=== PATIENT | male | born 1960 | race Caucasian/White ===

== ENCOUNTER 2017-02-04 09:13 | Emergency (ER) | payer OTHER ==
[~2017-02-04] VITALS: Ht 162.6 cm; Wt 106.6 kg
[2017-02-04 11:17] LABS: ABSOLUTE BASOPHIL COUNT 0 /CUMM (0.0-0.2); ABSOLUTE EOSINOPHIL COUNT 0 /CUMM (0.0-0.7); ABSOLUTE GRANULOCYTE CT 8.3 /CUMM (1.4-6.5); ABSOLUTE MONOCYTE COUNT 0.7 /CUMM (0.10-0.60); BASOPHIL % 0.2 % (0.0-2.0); EOSINOPHIL % 0.3 % (0-5); HEMATOCRIT 45.2 % (42-52); MEAN CORPUSCULAR HGB 30.2 PG (27.0-31.0); MEAN PLATELET VOLUME 8.6 FL (7.4-10.4); PLATELET COUNT 217 /CUMM (130-400); RBC DISTRIBUTION WIDTH 13.4 % (11.5-14.5); RED BLOOD CELL CT 5.09 /CUMM (4.70-6.10); WHITE BLOOD CELL COUNT 10.1 /CUMM (4.8-10.8)
--- NOTE | 2017-02-04 11:53 | RADIOLOGY REPORT ---
EXAMINATION: XR CHEST CLINICAL INFORMATION: Back pain, fever, chills, rule out pneumonia. COMPARISON: None TECHNIQUE: 2 views of the chest were obtained. FINDINGS: Low lung volumes, otherwise no significant abnormality is noted involving the heart, lungs, mediastinum, bony thorax or soft tissues. IMPRESSION: Low lung volumes, otherwise no acute cardiopulmonary process.
--- NOTE | 2017-02-04 12:31 | ED GENERAL ADULT ---
History of Present Illness General Chief Complaint: General Adult Stated Complaint: SENT BY WALKIN ?FLU Source: patient Exam Limitations: no limitations Vital Signs & Intake/Output Vital Signs & Intake/Output Vital Signs Date Time Temp Pulse Resp B/P Pulse O2 O2 Flow FiO2 Ox Delivery Rate 02/04 1309 98.4 88 88 129/81 96 02/04 1021 97.3 84 18 135/84 94 Room Air Allergies Coded Allergies: midazolam (From VERSED) (Intermediate, VOMITING 02/04/17) Uncoded Allergies: Allergy Other NONE Med Allergies VERSED- NAUSEA, VOMITING Triage Note: C/O ACHING NECK AND SHOULDER MUSCLES, FEVER, LOSS OF APPETITE X 4 DAYS. WAS SEEN AT [facility] IN CLINIC IN [place]. STATES HE HAD A FLU SWAB DONE, WASNT TOLD RESULTS. DENIES COUGH, SORE THROAT. Triage Nurses Notes Reviewed? yes Onset: Abrupt Duration: day(s): (4), continues in ED Timing: recent history Injury Environment: home No Modifying Factors: none HPI: 56-year-old male comes into emergency room for further evaluation of multiple complaints. Patient reports that he's been experiencing some upper back pain for the past 4 days, fever chills and body aches, fatigue, and general nausea. 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 Patient reports that nothing seems to make the symptoms better or worse. Denies any chest pain shortness of breath abdominal pain. Intermittent headache at times. No vomiting. No changes in bowel movement. Denies any other associated symptoms. (CELESTE YI) Past History Travel History Traveled to [place] past 21 day No Medical History Any Pertinent Medical History? see below for history Cardiovascular: hypertension, hyperlipidemia Surgical History Surgical History: non-contributory Psychosocial History What is your primary language Occitan Tobacco Use: Never used ETOH Use: occasional use Family History Hx Contributory? No (CELESTE YI) Review of Systems Review of Systems Constitutional: Reports: see HPI. EENTM: Reports: no symptoms. Respiratory: Reports: no symptoms. Cardiovascular: Reports: no symptoms. GI: Reports: see HPI. Genitourinary: Reports: no symptoms. Musculoskeletal: Reports: see HPI. Skin: Reports: no symptoms. Neurological/Psychological: Reports: no symptoms. Hematologic/Endocrine: Reports: no symptoms. Immunologic/Allergic: Reports: no symptoms. All Other Systems: Reviewed and Negative (CELESTE YI) Physical Exam Physical Exam General Appearance: well developed/nourished, no apparent distress, alert, awake Head: atraumatic, normal appearance Eyes: Bilateral: normal appearance, EOMI. Ears, Nose, Throat: normal pharynx, normal ENT inspection, hearing grossly normal Neck: normal inspection, full range of motion Respiratory: normal breath sounds, chest non-tender, no respiratory distress Cardiovascular: regular rate/rhythm Gastrointestinal: soft, non-tender Back: normal inspection, MILD TENDERNESS TO TRAPEZIUS REGION BILATERALLY Extremities: normal inspection, normal range of motion, no edema Neurologic/Psych: no motor/sensory deficits, awake, alert, oriented x 3, normal gait, normal mood/affect, director telemetry II-XII nml as tested Skin: intact, normal color Core Measures ACS in differential dx? No CVA/TIA Diagnosis: No Severe Sepsis Present: No Septic Shock Present: No (CELESTE YI) Progress Differential Diagnoses I considered the following diagnoses in my evaluation of the patient: Viral illness, influenza, pneumonia, Lyme disease, anemia, toxin exposure, Plan of Care: Orders Procedure Date/time Status RAPID VIRAL INFLUENZA A 02/04 105 Complete URINALYSIS 02/04 105 Complete LYME TITRE 02/04 1052 Complete COMPREHENSIVE METABOLIC PANEL 02/04 105 Complete CBC WITHOUT DIFFERENTIAL 02/04 1052 Complete Laboratory Tests 02/04/17 1140: Urine Color YEL, Urine Clarity CLEAR, Urine pH 6.0, Ur Specific [place] 1.020, Urine Protein NEG, Urine Ketones 15 H, Urine Nitrite NEG, Urine Bilirubin NEG, Urine Urobilinogen 0.2, Ur Leukocyte Esterase NEG, Ur Microscopic EXAM NOT REQUIRED, Urine Hemoglobin NEG, Urine Glucose NEG 02/04/17 1059: Anion Gap 11, Estimated GFR > 60, BUN/Creatinine Ratio 16.3, Glucose 94, Calcium 9.8, Total Bilirubin 1.1, AST 25, ALT 42, Alkaline Phosphatase 78, Total Protein 6.6, Albumin 4.2, Globulin 2.4, Albumin/Globulin Ratio 1.8, CBC w Diff NO MAN DIFF REQ, RBC 5.09, MCV 89.0, MCH 30.2, RDW 13.4, MPV 8.6, Gran % 83.0 H, Lymphocytes % 9.8 L, Monocytes % 6.7, Eosinophils % 0.3, Basophils % 0.2, Absolute Granulocytes 8.3 H, Absolute Lymphocytes 1.0 L, Absolute Monocytes 0.7 H, Absolute Eosinophils 0, Absolute Basophils 0, PUBS MCHC 34.0, Lyme Disease Antibody 0.32 Microbiology 02/04 1102 NASOPHARYN: Influenza Virus A & B Rapid Smear - COMP Initial ED EKG: none Comments: 02/04/2017 2:07:29 PM Patient clinically looks well. Patient is nontoxic-appearing. Patient is in no apparent distress. Patient resting comfortably in room. There is no evidence of any type of acute findings here in the emergency room. Poison control was consulted with in regards to the chemical that the patient may have inhaled while he was working with. There is no treatment and is supportive care only. Nothing to be worried about as long as the patient clinically looks well. Patient was reevaluated multiple times. He continued to remain in no apparent distress. Recommend a follow-up with primary care doctor. Symptoms are likely consistent with some type of viral illness. Patient understands and agrees with plan of care. Shared decision making. (HOUSTON LIN,CELESTE) Departure Departure Disposition: HOME OR SELF CARE Condition: Stable Clinical Impression Primary Impression: Viral syndrome Referrals: FLAKO DAWSON,DAVID Smith (PCP/Family) Additional Instructions: Follow-up with your primary care doctor. Return if any concerns worsening symptoms. Motrin at home. Rest. Drink plenty of fluids. Please go over all results of today's visit with your primary care doctor. Contact your primary care doctor to let them know you were here in the emergency room. There may be nonspecific findings which may not be related to your visit today here in the emergency room but may require further evaluation and chronic monitoring by your primary care doctor. If you had a laceration today the chance of foreign body always remains. You should follow-up with your primary care doctor for recheck in 3-5 days for a wound check. If you had an x-ray done there is a chance that a fracture could have been missed on initial read and you should follow-up with your primary care doctor for repeat x-rays if symptoms persist. If your blood pressure was elevated here in the emergency room please have rechecked by her primary care doctor within the next 48 hours by your primary care doctor. If you were prescribed a narcotic here in the emergency room or any type of controlled substances you're not allowed to drive while taking this medication or operate any type of heavy machinery. Narcotics can make you feel lightheaded dizziness nausea and can cause constipation. You may need to cotton picker operator a stool softener. Thank you for choosing [facility] emergency room. Please return to the emergency room immediately if you have any other concerns worsening of symptoms. Departure Forms: Customer Survey General Discharge Information (CELESTE YI) PA/PLASTIC EYE TECHNICIAN Co-Sign Statement Statement: ED Attending supervision documentation- [] I saw and evaluated the patient. I have also reviewed all the pertinent lab results and diagnostic results. I agree with the findings and the plan of care as documented in the PA's/PLASTIC EYE TECHNICIAN's documentation. [X] I have reviewed the ED Record and agree with the PA's/PLASTIC EYE TECHNICIAN's documentation. [] Additions or exceptions (if any) to the PAs/PLASTIC EYE TECHNICIAN's note and plan are summarized below: [] (ERNIE DAWSON,TRAVIS) Critical Care Note Critical Care Note Critical Care Time: non-applicable (CELESTE YI)
[2017-02-04 13:09] VITALS: BP 129/81
== END 2017-02-04 13:16 ==
LOC: ERH 09:13
PROVIDERS: Physician Assistant Medical
DX: B34.9 Viral infection, unspecified (principal); R11.0 Nausea; M79.1 Myalgia; R50.9 Fever, unspecified
CPT/HCPCS: 86618; 81003; 87804; 87804-59

== ENCOUNTER 2017-02-27 10:24 | Emergency (ER) | payer OTHER ==
[~2017-02-27] VITALS: Ht 165.1 cm; Wt 106.6 kg
--- NOTE | 2017-02-27 11:32 | ED GENERAL ADULT ---
History of Present Illness General Chief Complaint: General Adult Stated Complaint: DIZZINESS,NVD, "CHEMICAL EXPOSURE" Source: patient Exam Limitations: no limitations Vital Signs & Intake/Output Vital Signs & Intake/Output Vital Signs Date Time Temp Pulse Resp B/P Pulse O2 O2 Flow FiO2 Ox Delivery Rate 02/27 1402 72 20 173/91 97 Room Air 02/27 1226 97.0 80 20 150/90 96 Room Air 02/27 1131 98.0 75 22 94 Room Air 02/27 1129 97.0 102 20 154/85 96 Room Air ED Intake and Output 02/28 0000 02/27 1200 Intake Total Output Total Balance Patient 235 lb Weight Allergies Coded Allergies: midazolam (From VERSED) (Intermediate, VOMITING 02/04/17) Triage Note: PT STATES HE WAS HERE A FEW WEEKS AGO BECAUSE HE THOUGHT HE WAS EXPOSED TO A CHEMICAL. HE FOUND OUT YESTERDAY THAT HIS FURNACE HAS BEEN EMITTING A NUMBER OF CHEMICALS (PT HAS MSDS SHEET WITH HIM). PT STATES HE HAS NAUSEA, MUSCLE WEAKNESS, DIZZINESS, VOMITING X 2 WEEKS Triage Nurses Notes Reviewed? yes HPI: Patient presents for evaluation of headache, weakness, trembling, nausea, vomiting and dizziness since February 04. Patient feels this is secondary to a problem he is having with his furnace. He states he had an oil spill recently and they removed the "weather stripping" from the inside of the furnace. The underlying adhesive was exposed and the patient feels that this is the cause of his symptoms. The furnace is in the process of being replaced. 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 He has turned the furnace off and has been living in a friend's house over the past 2-3 days with no improvement of symptoms. He denies problems with his car and he has no known chemical exposures on the job. He denies alcohol or drug use. Symptoms are described as severe and compromising his ADLs. Symptoms have been constant since onset. Nothing seems to make him feel better. Past History Travel History Traveled to [place] past 21 day No Medical History Any Pertinent Medical History? see below for history Cardiovascular: hypertension, hyperlipidemia Surgical History Surgical History: non-contributory Psychosocial History What is your primary language Yoruba Tobacco Use: Never used ETOH Use: denies use Illicit Drug Use: denies illicit drug use Family History Hx Contributory? No Review of Systems Review of Systems Constitutional: Reports: weakness. EENTM: Reports: no symptoms. Respiratory: Reports: no symptoms. Cardiovascular: Reports: no symptoms. GI: Reports: see HPI. Genitourinary: Reports: no symptoms. Musculoskeletal: Reports: no symptoms. Skin: Reports: no symptoms. Neurological/Psychological: Reports: no symptoms. Hematologic/Endocrine: Reports: no symptoms. Immunologic/Allergic: Reports: no symptoms. All Other Systems: Reviewed and Negative Physical Exam Physical Exam General Appearance: sEE BELOW Comments: Gen.: Well-nourished, well-developed, no acute respiratory distress. Head: Normocephalic, atraumatic. Eyes: Left eye strabismus (congenital), otherwise bilateral eye examination is normal Ears: Normal inspection bilaterally Nose: Normal inspection Throat/mouth : Moist mucosa Neck: Supple, full range of motion, no goiter Heart: Regular rate and rhythm, no murmurs rubs or gallops Lungs: Clear to auscultation bilaterally with normal air entry Chest: Nontender Back: Normal range of motion Abdomen: Soft, nontender, nondistended, normal bowel sounds Extremities: Normal range of motion grossly, equal radial pulses, no cyanosis clubbing or edema, normal upper and lower extremity strength and deep tendon reflexes Neurologic: Cranial nerves 2 through 12 intact, speech is clear Skin: warm and dry Psychiatric: Calm, cooperative, no apparent delusions or hallucinations Core Measures ACS in differential dx? No CVA/TIA Diagnosis: No Severe Sepsis Present: No Septic Shock Present: No Progress Differential Diagnoses I considered the following diagnoses in my evaluation of the patient: Environmental exposure, thyroid disease, electrolyte abnormality Plan of Care: Orders Procedure Date/time Status MIXED VENOUS BLOOD GAS (GEN) 02/27 1132 Complete MISTAKE 02/27 1132 Active TSH REFLEX 02/27 1132 Complete COMPREHENSIVE METABOLIC PANEL 02/27 1132 Complete CBC WITHOUT DIFFERENTIAL 02/27 1132 Complete Laboratory Tests 02/27/17 1150: Bicarbonate Actual 24, Mixed VBG pH 7.42 H, Mixed VBG pCO2 38 L, Mixed VBG O2 Saturation 34 L, Carboxyhemoglobin 0.8 L, O2 Concentration % RA, Anion Gap 8, Estimated GFR > 60, BUN/Creatinine Ratio 18.8, Glucose 94, Calcium 10.1, Total Bilirubin 0.8, AST 25, ALT 54, Alkaline Phosphatase 68, Total Protein 6.9, Albumin 4.5, Globulin 2.4, Albumin/Globulin Ratio 1.9, TSH &T3 &Free T4 Intrp 0.913, CBC w Diff NO MAN DIFF REQ, RBC 5.16, MCV 88.3, MCH 30.3, RDW 13.5, MPV 8.4, Gran % 76.3 H, Lymphocytes % 17.6 L, Monocytes % 4.7, Eosinophils % 1.0, Basophils % 0.4, Absolute Granulocytes 4.4, Absolute Lymphocytes 1.0 L, Absolute Monocytes 0.3, Absolute Eosinophils 0.1, Absolute Basophils 0, PUBS MCHC 34.3, Phlebotomy Draw Site RT ARM Initial ED EKG: none Comments: i had a length discussion with nadeem. i dont think the environmental exposure is the cause of his sx. he has been away from this house for 2 days (prior to that the furnace was shut down). he has symptoms as work, at home and at his friends house (he is currrently residing there). i have suggested a f/u with pcp for possible environmental allergies or other causes. Departure Departure Disposition: HOME OR SELF CARE Condition: Stable Clinical Impression Primary Impression: Dizziness Secondary Impressions: Weakness Referrals: FLAKO DAWSON,DAVID Smith (PCP/Family) Additional Instructions: The cause of your symptoms is unclear at this point so please follow-up with Dr. ARRIOLA for additional testing as soon as possible. Return if any concerns or sudden worsening. Departure Forms: Customer Survey General Discharge Information Critical Care Note Critical Care Note Critical Care Time: non-applicable
[2017-02-27 11:56] LABS: ABSOLUTE BASOPHIL COUNT 0 /CUMM (0.0-0.2); ABSOLUTE EOSINOPHIL COUNT 0.1 /CUMM (0.0-0.7); ABSOLUTE GRANULOCYTE CT 4.4 /CUMM (1.4-6.5); ABSOLUTE MONOCYTE COUNT 0.3 /CUMM (0.10-0.60); BASOPHIL % 0.4 % (0.0-2.0); GRANULOCYTE % 76.3 % (42.2-75.2); HEMATOCRIT 45.5 % (42-52); MEAN CORPUSCULAR HGB 30.3 PG (27.0-31.0); MEAN CORPUSCULAR HGB CONC 34.3 G/DL (33.0-37.0); MEAN CORPUSCULAR VOLUME 88.3 FL (80.0-94.0); MEAN PLATELET VOLUME 8.4 FL (7.4-10.4); PLATELET COUNT 236 /CUMM (130-400); RBC DISTRIBUTION WIDTH 13.5 % (11.5-14.5); RED BLOOD CELL CT 5.16 /CUMM (4.70-6.10); WHITE BLOOD CELL COUNT 5.8 /CUMM (4.8-10.8)
[2017-02-27 14:02] VITALS: BP 173/91
== END 2017-02-27 14:04 ==
LOC: ERH 10:24
PROVIDERS: Emergency Medicine
DX: R42 Dizziness and giddiness (principal); R53.1 Weakness